=== PATIENT | male | born 2000 | race Caucasian/White ===

== ENCOUNTER 2021-08-18 16:19 | Emergency (ER) | payer OTHER ==
[~2021-08-18] VITALS: Ht 185.4 cm; Wt 80.0 kg
[2021-08-18] MEDS ORDERED: NALO4SPR BOTHNSTRLS (18:06)
[2021-08-18 18:19] VITALS: BP 114/68
== END 2021-08-18 18:22 | disposition home or self-care (01) ==
LOC: ER 16:19
DX: T40.2X1A Poisoning by other opioids, accidental (unintentional), initial encounter (principal); Y92.018 Other place in single-family (private) house as the place of occurrence of the external cause
CPT/HCPCS: 93005; 99283